=== PATIENT | female | born 1980 | race Caucasian/White ===

== ENCOUNTER 2020-10-29 08:39 | Emergency (ER) | payer BC, SELFPAY ==
[2020-10-29 08:41] VITALS: BP 146/92; PULSE 96; RESP 14; TEMP 36.5; O2SAT 98; BMI 34.0
--- NOTE | 2020-10-29 09:14 | CT_ITS ---
STUDY: CT ABDOMEN AND PELVIS WITH CONTRAST REASON FOR EXAM: Female, 40 years old. Abdominal pain -- IV PO Contrast RADIATION DOSAGE (If Supplied By Facility): CTDIvol = ( 16.92 ) mGy, DLP = ( 1058.37 ) mGycm TECHNIQUE: Transaxial images were obtained from the dome of the diaphragm to the symphysis pubis without oral contrast. Oral and amp; IV Gastrografin and amp; 100mL Isovue-300 was administered. Sagittal and coronal images were reconstructed. Individualized dose optimization techniques were used for this CT. COMPARISON: None. FINDINGS: The visualized lung bases are unremarkable. The visualized portions of the heart are within normal limits. Normal liver. Normal gallbladder and extrahepatic biliary system. Normal spleen. Normal pancreas. Normal bilateral adrenal glands. Normal right kidney. Normal left kidney. Normal visualized stomach. Normal small intestine. There is diverticulosis of the mid descending colon, with thickening of the colon wall, and pericolonic inflammation changes consistent with acute diverticulitis. Refer to axial image #54 series 2 and coronal image #69. There is prominent peridiverticular stranding of fat. There is no evidence of associated peridiverticular abscess and no sign of perforation. There is non-visualization of the appendix. No secondary signs of appendicitis. Normal abdominal aorta. Minimal atherosclerosis noted. Normal inferior vena cava. Normal retroperitoneum. Normal urinary bladder. Absent uterus. Normal abdominal wall. Lower lumbar facet arthropathy noted most prominently seen at L5-S1. CT/Abdomen/Pelvis WITH Contrast IMPRESSION: There is diverticulosis of the mid descending colon, with thickening of the colon wall, and pericolonic inflammation changes consistent with acute diverticulitis. There is prominent peridiverticular stranding of fat. There is no evidence of associated peridiverticular abscess and no sign of perforation. Electronically Signed: Clare Crawley MD at 11:45 EDT , Service support ,
[2020-10-29] MEDS: Morphine 4 MG/ML Syringe IV (09:36)
[2020-10-29] MEDS: Ondansetron 4 MG/2 ML Vial IV (09:36)
[2020-10-29 09:37] LABS: Mucous, Urine 0 SEEN /hpf (<or=2+); Red Blood Cells-Urine 0 SEEN /hpf (0-5); White Blood Cells 0 SEEN /hpf (0-5)
[2020-10-29] MEDS: 0.9% Normal Saline 1,000 ML 1000 ML IV (09:37)
[2020-10-29 09:38] LABS: Absolute Lymphocyte Count 1.45 X10^3/uL (0.83-4.51); Absolute Neutrophil Count 8.1 X10^3/uL (2.0-7.7); Basophil# 0.03 X10^3/uL; Basophil% 0.3 % (0-1); Eosinophil# 0.11 X10^3/uL; Eosinophils% 1.1 % (0-5); Hematocrit 41.9 % (37-47); Hemoglobin 13.6 g/dL (12.0-15.0); Lymphocyte # 1.45 X10^3/ul (4.0); Lymphocyte % 14.1 % (19-41); Mean Corp Hgb Conc 32.5 g/dL (32-36); Mean Corpuscular Hgb 28.5 pg (27.0-32.0); Mean Corpuscular Volume 87.8 fL (81-99); Mean Platelet Vol. 9.4 fl (6.2-12.0); Monocyte# 0.61 X10^3/uL; Monocyte% 5.9 % (0-10); NRBC Flagged by Analyzer 0 % (0-5); Neutrophil # 8.06 X10^3/uL (2.7-7.7); Neutrophil % 78.3 % (47-70); Platelet Count 324 K/mm3 (150-450); RBC Distribution Width CV 13.8 % (11.6-14.6); RBC Distribution Width SD 44.4 fl (35.1-43.9); Red Blood Count 4.77 M/mm3 (4.2-5.4); White Blood Count 10.3 K/mm3 (4.4-11.0)
[2020-10-29 09:39] LABS: Color, Urine Yellow (Yellow); Glucose, Dipstick Normal (Normal); Ketone-Dipstick Negative (Negative); Leukocyte Esterase-Dipstick Negative /ul (Negative); Nitrite-Dipstick Negative (Negative); Occult Blood-Urine 10 /ul (Negative); Protein-Dipstick Negative (Negative); Specific Gravity, Urine 1.015 (1.002-1.030); Urine Bilirubin Dipstick Negative (Negative); Urine Clarity Clear (Clear); Urine Urobilinogen Normal (Normal); Urine pH 6.5 (5.0 - 8.0)
[2020-10-29 09:49] LABS: Bacteria 2+ /hpf (None Seen); Squamous Epithelial Cells - UA 0-5 SEEN /hpf (5-10)
--- NOTE | 2020-10-29 09:55 | ED.DCSUM_ITS ---
- ER Visit Summary Date of Service: 10/29/20 Chief Complaint: Abdominal pain History of Present Illness: The patient is a 40 F who presents with abdominal pain that began yesterday morning. Patient states the pain began rather suddenly. Patient states the pain is over the left upper quadrant. Patient trish cribes the pain is sharp, stabbing, aching, and cramping. Patient states nothing makes it better. Patient states nothing makes it worse. Patient denies any nausea or vomiting. Patient admits to diarrhea but denies any melena or hematochezia. Patient denies any dysuria or hematuria. States she did have a fever yesterday of 100.3. Patient denies any radiation into her back or shoulder. Physical Examination: Vital signs are stable. Patient is afebrile here. Patient is in no acute distress. Oral mucosa is pink and moist. Neck is supple. Trachea is midline. There is no JVD. Heart was regular rate and rhythm. Lungs are clear and equal bilaterally. Abdomen is soft. Bowel sounds are normal. There is some left upper quadrant tenderness. There is no rebound or guarding noted. There are no masses palpated. Cranial nerves II through XII are intact. There are no focal motor or sensory deficits noted. Extremities are intact. There is no calf tenderness or edema. Test Results: CBC and comprehensive metabolic profile were within normal limits. Lipase was normal. Urinalysis was normal. CT scan of the abdomen and pelvis was obtained. There is evidence of diverticulitis but no perforation or abscess. This was interpreted by the radiologist and reviewed by myself. Emergency Department Course and Treatment: Patient was given a dose of morphine and Zofran here. Patient was given IV fluids. Patient was given a dose of Cipro and Flagyl. Patient was advised of her findings. Patient was given prescriptions for Cipro and Flagyl. Patient was instructed to follow-up with her primary care physician in 5 to 7 days. Patient was instructed to eat a bland diet. Patient was instructed return if worse in any way. Patient understood and was agreeable with the plan. All questions were answered. Disposition: Discharge home Impression: 1. Diverticulitis This note was generated with mascotsecretation software. It may contain incorrect words, spelling, and punctuation that were not noted in review of the chart prior to signing ED Disposition - Plan for ED Patient: Disposition: Home or Assisted Living Diagnosis: Diverticulitis Instructions: ED Diverticulitis Prescriptions: Ciprofloxacin [Cipro] 500 mg PO BID #20 tab Transmission Status: Pending to [id number] metroNIDAZOLE [Flagyl] 500 mg PO Q6H #40 tablet Transmission Status: Pending to [id number] Referrals: Tiffany Malone MD [STAFF PHYSICIAN] - 5-7 Days Additional Instructions: Do not drink any alcohol while taking Flagyl.
[2020-10-29 10:11] LABS: AST(SGOT) 8 U/L (15-37); Alanine Aminotransfer ALT/SGPT 19 U/L (13-56); Albumin, Serum 3.2 g/dL (3.2-5.0); Alkaline Phosphatase 51 U/L (45-117); Anion Gap 1 (5-15); BUN 11 mg/dL (7-18); BUN/Creat Ratio 16.7 RATIO (10-20); Calcium,Total 8.4 mg/dL (8.5-10.1); Chloride 109 mmol/L (98-107); Creatinine, Serum 0.66 mg/dL (0.55-1.02); EST Glomerular Filtration Rate 105 mL/min (>60); Est Glom Filt Rate - Afr Amer 127 mL/min (>60); Estimated Creatinine Clearance 87.82 ml/min; Globulin 3.3 g/dL (2.2-4.2); Glucose 93 mg/dL (74-106); Lipase 53 U/L (73-393); Potassium 4.1 mmol/L (3.5-5.1); Protein, Total 6.5 g/dL (6.4-8.2); Sodium Level 140 mmol/L (136-145)
[2020-10-29 10:38] VITALS: BP 121/81; PULSE 82; RESP 16
[2020-10-29] MEDS: Ciprofloxacin 500 MG Tablet PO (12:39)
[2020-10-29] MEDS: metroNIDAZOLE 500 MG Tablet PO (12:39)
[2020-10-29 12:48] VITALS: BP 110/72; PULSE 84; RESP 16
== END 2020-10-29 12:51 | disposition home or self-care (01) ==
PROVIDERS: Emergency Provider Emergency Medicine; PCP Internal Medicine
DX: K57.92 Diverticulitis of intestine, part unspecified, without perforation or abscess without bleeding (principal); F17.200 Nicotine dependence, unspecified, uncomplicated
CPT/HCPCS: 74177; 80053; 81001; 83690; 85025; 96374; 96375; 99285; J7030; Q9967; A4216; J2405